=== PATIENT | female | born 1965 | race Caucasian/White ===

== ENCOUNTER 2017-03-13 05:14 | Emergency (ER) | payer OTHER ==
[~2017-03-13] VITALS: Ht 162.6 cm; Wt 79.5 kg
[~2017-03-13 05:14] MED LIST: ACET325T33 PO; ALLERGY SHOT; BACTDS PO; CIPR7.5D4 BOTH EARS; FAMO-18 PO
[2017-03-13 05:18] VITALS: Ht 162.6 cm; Wt 79.5 kg
[2017-03-13] MEDS ORDERED: KETOROLAC 15 MG INJ IV STA (06:02)
[2017-03-13] MEDS ORDERED: ONDANSETRON 4 MG INJ IV STA (06:02)
[2017-03-13] MEDS ORDERED: SOD CHLORIDE 0.9% 1,000 ML IV STA (06:02)
[2017-03-13] MEDS ORDERED: DICYCLOMINE 20 MG INJ IM ONE (06:30)
--- NOTE | 2017-03-13 06:32 | ERD ---
ER Documentation Chief Complaint Date/Time DATE: 03/13/17 TIME: 06:29 Chief Complaint epigastric pain x 1 day, vomiting since 6 hours ago HPI 51-year-old female who presents to the emergency room with approximately 12 hours of symptoms that include nonbloody nonbilious emesis, loose watery stools and diffuse cramping abdominal discomfort that is moderate. The patient describes no recent travel, antibiotics, sick contacts. She denies any chest pain or shortness of breath. No exertional symptoms. No abdominal surgical history. She does report recent endoscopy and colonoscopy that showed diverticulosis and hiatal hernia ROS All systems reviewed and are negative except as per history of present illness. Medications Home Meds Active Scripts Ondansetron (Ondansetron Odt) 4 Mg Tab.rapdis, 4 MG PO Q6H Y for NAUSEA AND/OR VOMITING, #30 TAB Prov:NONI FAROOQ MD 03/13/17 Dicyclomine Hcl* (Bentyl*) 10 Mg Capsule, 10 MG PO QID Y for abdominal cramping , #30 CAP Prov:NONI FAROOQ MD 03/13/17 Discontinued Reported Medications [None] No Conflict Check 10/03/11 [Allergy Shot] No Conflict Check 04/14/10 Discontinued Scripts Acetaminophen* (Tylenol*) 325 Mg Tablet, 325 MG PO Q4H Y for PAIN AND OR ELEVATED TEMP, #30 TAB Prov:SUSHMA LANDEROS PA-C 05/26/15 Ciprofloxacin Hcl/Dexameth (Ciprodex Otic Suspension) 7.5 Ml Drops.susp, 4 DROP BOTH EARS BID for 7 Days, EA Prov:SUSHMA LANDEROS PA-C 05/26/15 Famotidine* (Pepcid*) 20 Mg Tablet, 20 MG PO AM, #30 TAB Prov:SUSHMA LANDEROS PA-C 05/26/15 Sulfamethoxazole-Trimethoprim* (Bactrim* DS) 800-160 Mg Tab, 1 TAB PO BID for 5 Days, TAB Prov:SUSHMA LANDEROS PA-C 05/26/15 Allergies Allergies: Coded Allergies: amoxicillin (Verified Allergy, Mild, 03/13/17) PMhx/Soc History of Surgery: Yes (LUMPECTOMY LEFT BREAST, inguinal hernia removed, appendectomy, coccyx cyst ) Anesthesia Reaction: No Hx Neurological Disorder: No Hx Respiratory Disorders: No Hx Cardiac Disorders: No Hx Psychiatric Problems: No Hx Miscellaneous Medical Probl: Yes (right ear infection) Hx Alcohol Use: No Hx Substance Use: No Hx Tobacco Use: No Smoking Status: Never smoker FmHx Family History: No diabetes Physical Exam Vitals Vital Signs Date Time Temp Pulse Resp B/P Pulse Ox O2 Delivery O2 Flow Rate FiO2 03/13/17 06:50 94 18 124/76 98 Room Air 03/13/17 05:18 97.8 110 20 126/72 98 Physical Exam General: Well developed, well nourished, no acute distress Head: Normocephalic, atraumatic. Eyes: Pupils equally reactive, EOM intact ENT: Moist mucous membranes Neck: Supple, no lymphadenopathy Respiratory: Lungs clear bilaterally, no distress Cardiovascular: RRR, no murmurs, rubs, or gallops Abdominal: Soft, non-tender, non-distended, no peritoneal signs, negative Wang sign, no tenderness to McBurney's point, no pulsatile mass : Deferred MSK: No edema, no unilateral swelling, 5/5 strength Neurologic: Alert and oriented, moving all extremities, normal speech, no focal weakness, no cerebellar signs Skin: No rash Psych: Normal mood Results 24 hrs Current Medications Medications (Trade) Dose Ordered Sig/Ranjith Route PRN Reason Start Time Stop Time Status Last Admin Dose Admin Sodium Chloride (NS) 1,000 ml @ 1,000 mls/hr Q1H STAT IV 03/13/17 06:02 03/13/17 07:01 DC 03/13/17 06:17 Ondansetron HCl (Zofran Inj) 4 mg ONCE STAT IV 03/13/17 06:02 03/13/17 06:03 DC 03/13/17 06:17 Ketorolac Tromethamine (Toradol) 15 mg ONCE STAT IV 03/13/17 06:02 03/13/17 06:03 DC 03/13/17 06:17 Dicyclomine HCl (Bentyl) 10 mg ONCE ONCE IM 03/13/17 06:30 03/13/17 06:31 DC 03/13/17 06:47 Procedures/MDM EKG, MONITORS, & DIAGNOSTIC IMAGING: EKG: I reviewed and interpreted a 12-lead EKG. Rhythm: Normal sinus rhythm Ectopy: None Intervals: No abnormalities ST segments: No elevations or depressions T waves: No contiguous inversions MEDICAL DECISION MAKING: The patient presents with nausea vomiting diarrhea and diffuse cramping abdominal discomfort. I believe her symptoms are very consistent with viral process. She has a benign abdominal exam with no fever. I do not believe this is consistent with acute intra-abdominal process such as appendicitis, bowel obstruction, choledocholithiasis, cholecystitis or pancreatitis. I do not believe the patient requires laboratory testing at this time. The patient was given reassurance and will benefit from symptom control including IV fluids and pain control medication. The patient also describes a prolonged history of reflux which she describes as epigastric radiating up and through her chest with globus sensation. She has had thorough workup in the past. She is requesting an EKG. Her EKG shows no evidence of ischemia. I do not believe her symptoms today are consistent with cardiac process. She states that the symptoms of reflux have been going on for greater than 2 years and have been followed by oncology pharmacist and primary care physician. Additionally, the symptoms are not present today. ER COURSE: Patient given IV fluids, Bentyl, Toradol, Zofran. The patient has had a repeat abdominal exam that is again benign. The patient has mild to moderate subjective improvement. I believe discharge is appropriate at this time. We did discuss return precautions including fever , worsening pain, inability to tolerate oral intake. I kept the patient and/or family informed of laboratory and diagnostic imaging results throughout the emergency room course. DISPOSITION PLAN: We discussed follow up with the patient's primary care doctor within 24 to 48 hours as needed. We also discussed return to the emergency room for worsening symptoms or worsening condition. Outpatient referral: None required Discharge Medications: Bentyl, Zofran Departure Diagnosis: Primary Impression: Nausea vomiting and diarrhea Condition: Stable NONI FAROOQ MD March 13, 2017 06:32
[2017-03-13 06:50] VITALS: BP 124/76; PULSE 94; RESP 18
[2017-03-13] MEDS ORDERED: ONDA4TAB14 PO (07:05)
[2017-03-13] MEDS ORDERED: DICY10CA60 PO (07:05)
== END 2017-03-13 07:23 | disposition home or self-care (01) ==
LOC: E/R 05:14
DX: R11.2 Nausea with vomiting, unspecified (principal); R19.7 Diarrhea, unspecified
CPT/HCPCS: 93005; 96372; 96374; 96375; 99284; J0500; J1885; J2405; J7030